=== PATIENT | female | born 1970 | race Caucasian/White ===

== ENCOUNTER 2021-11-03 12:11 | Emergency (ER) | payer OTHER ==
[2021-11-03] MEDS ORDERED: Ketorolac 30 MG/ML SDV IM ONE (12:55)
== END 2021-11-03 13:58 | disposition home or self-care (01) ==
LOC: JP.ED 12:11
DX: N39.0 Urinary tract infection, site not specified (principal); E11.9 Type 2 diabetes mellitus without complications; Z79.899 Other long term (current) drug therapy; Z79.84 Long term (current) use of oral hypoglycemic drugs; Z90.49 Acquired absence of other specified parts of digestive tract; Z90.710 Acquired absence of both cervix and uterus
CPT/HCPCS: 81001; 87086; 87088; 87186; 96372; 99284; J1885